=== PATIENT | female | born 1950 | race Two or more races ===

== ENCOUNTER 2018-11-07 12:21 | Day surgery (SDC) | payer BC ==
[2018-11-07] MEDS ORDERED: ONDANSETRON 4 MG INJ IV (14:30)
[2018-11-07] MEDS ORDERED: PROPOFOL 20 ML (14:43)
== END 2018-11-07 16:36 | disposition home or self-care (01) ==
LOC: GIL 12:21
DX: K29.50 Unspecified chronic gastritis without bleeding (principal); I10 Essential (primary) hypertension
CPT/HCPCS: 43239; 88305; 88312